=== PATIENT | female | born 1965 | race Two or more races ===

== ENCOUNTER 2025-07-05 08:10 | Day surgery (SDC) | payer MEDICAID, SELFPAY ==
[2025-07-04 13:21] VITALS: BMI 31.7
[2025-07-05] VITALS (11 sets, daily range): BP systolic 100–132; BP diastolic 65–107; PULSE 73–843; RESP 12–19; TEMP 36.1–36.4; O2SAT 92–99; BMI 35.5
--- NOTE | 2025-07-05 10:54 | SUR.PHASEII ---
1054: Pt. wakes to name then drifts back to sleep, vitals stable, breathing unlabored, no complaint of pain or nausea, no dressing in place, no active bleed noted, report received from López PRESCOTT.
--- NOTE | 2025-07-05 11:30 | SUR.PHASEII ---
1130: Pt. AAOx4, vitals stable, breathing unlabored, no complaint of pain or nausea, no dressing in place, no active bleed noted, pt. tolerated sips of water well, pt. ambulated to wheelchair with steady gait and no assist, gave discharge instructions to the pt. and her ride using nutrition educator, both verbalized understanding and had no further questions. Pt. left with all personal belongings.
== END 2025-07-05 11:30 | disposition home or self-care (01) ==
LOC: S2EX 10:30
PROVIDERS: PCP Physician Assistant; Referring Provider Specialist; Visit Provider Specialist
PROC: (CPT 43239; principal; 2025-07-05 09:30)
DX: K29.50 Unspecified chronic gastritis without bleeding (principal); K21.00 Gastro-esophageal reflux disease with esophagitis, without bleeding; K44.9 Diaphragmatic hernia without obstruction or gangrene; K31.89 Other diseases of stomach and duodenum
CPT/HCPCS: 43239; J1200; J2250; J3010; A9270